=== PATIENT | female | born 1990 | race Caucasian/White ===

== ENCOUNTER 2018-03-09 12:42 | Emergency (ER) | payer OTHER ==
[~2018-03-09] VITALS: Ht 172.7 cm; Wt 80.0 kg
[~2018-03-09 12:42] MED LIST: ACYCLOVIR400 MG PO; CIPROFLOXACN500 MG PO; CLEOCIN150 MG OR; CLINDAMYCIN300 M1 PO; IRON28 MG OR; LORTAB5 OR; MACRODANTIN100 MG OR; MACRODANTIN100 MG PO; MEDDOSEPAK PO; NO; NO MEDS; OMEGA 31000 MG PO; PEPCID20 MG PO; PHENERGAN SUPP RE; PRENATA3 OR; PRENATA9 PO; PRENATAL1 TAB PO; TOBRAMYCIN0.3 % OS; TYLENOL500 MG OR; ULTRAM50 M1 PO
[2018-03-09] MEDS ORDERED: TORADOL PO (14:03)
[2018-03-09 14:10] VITALS: BP 122/67
== END 2018-03-09 14:10 | disposition home or self-care (01) | DRG 605 ==
LOC: ED 12:42
DX: S50.11XA Contusion of right forearm, initial encounter (principal); I10 Essential (primary) hypertension; J45.909 Unspecified asthma, uncomplicated; W01.190A Fall on same level from slipping, tripping and stumbling with subsequent striking against furniture, initial encounter; Y92.009 Unspecified place in unspecified non-institutional (private) residence as the place of occurrence of the external cause

== ENCOUNTER 2018-07-13 15:23 | Emergency (ER) | payer OTHER ==
[~2018-07-13] VITALS: Ht 172.7 cm; Wt 78.8 kg
[~2018-07-13 15:23] MED LIST changes: +TORADOL PO
[2018-07-13] MEDS ORDERED: TRAMADOL HYDROC50 MG PO (17:05)
[2018-07-13 17:40] VITALS: BP 138/78
== END 2018-07-13 17:40 | disposition home or self-care (01) ==
LOC: ED 15:23
DX: S92.354A Nondisplaced fracture of fifth metatarsal bone, right foot, initial encounter for closed fracture (principal); X50.1XXA Overexertion from prolonged static or awkward postures, initial encounter; Y92.009 Unspecified place in unspecified non-institutional (private) residence as the place of occurrence of the external cause

== ENCOUNTER 2019-01-22 07:28 | Emergency (ER) | payer OTHER ==
[~2019-01-22] VITALS: Ht 172.7 cm; Wt 79.5 kg
[~2019-01-22 07:28] MED LIST changes: +TRAMADOL HYDROC50 MG PO
[2019-01-22 08:34] VITALS: BP 130/81
== END 2019-01-22 08:41 | disposition home or self-care (01) ==
LOC: ED 07:28
DX: M79.671 Pain in right foot (principal); I10 Essential (primary) hypertension

== ENCOUNTER 2019-08-27 06:58 | Emergency (ER) | payer OTHER ==
[~2019-08-27] VITALS: Ht 172.7 cm; Wt 80.5 kg
[2019-08-27] MEDS ORDERED: SINGULAIR10 MG PO (08:21)
[2019-08-27] MEDS ORDERED: TAM75CAP PO (09:30)
[2019-08-27] MEDS ORDERED: ZOFRAN4 MG/TAB PO (09:30)
[2019-08-27 09:43] VITALS: BP 125/82
== END 2019-08-27 09:43 | disposition home or self-care (01) ==
LOC: ED 06:58
DX: J11.1 Influenza due to unidentified influenza virus with other respiratory manifestations (principal)

== ENCOUNTER 2020-03-21 08:35 | Emergency (ER) | payer OTHER ==
[~2020-03-21] VITALS: Ht 172.7 cm; Wt 85.0 kg
[~2020-03-21 08:35] MED LIST changes: +SINGULAIR10 MG PO; +TAM75CAP PO; +ZOFRAN4 MG/TAB PO
[2020-03-21] MEDS ORDERED: CEPHALEXIN500 MG PO (08:49)
[2020-03-21] MEDS ORDERED: BENADRY2 EX (08:49)
[2020-03-21] MEDS ORDERED: BENADRYL 50MG C50 MG PO (08:49)
[2020-03-21 08:53] VITALS: BP 128/77
== END 2020-03-21 08:58 | disposition home or self-care (01) ==
LOC: ED 08:35
DX: S20.369A Insect bite (nonvenomous) of unspecified front wall of thorax, initial encounter (principal); S20.469A Insect bite (nonvenomous) of unspecified back wall of thorax, initial encounter; I10 Essential (primary) hypertension; W57.XXXA Bitten or stung by nonvenomous insect and other nonvenomous arthropods, initial encounter; Y93.59 Activity, other involving other sports and athletics played individually

== ENCOUNTER 2023-02-17 14:27 | Emergency (ER) | payer MEDICAID ==
[~2023-02-17] VITALS: Ht 170.2 cm; Wt 88.0 kg
[~2023-02-17 14:27] MED LIST changes: +BENADRY2 EX; +BENADRYL 50MG C50 MG PO; +CEPHALEXIN500 MG PO
[2023-02-17] MEDS ORDERED: ALLERGY RE50 MCG/ACT (15:12)
[2023-02-17] MEDS ORDERED: VENTOLIN HFA108 MCG (15:12)
[2023-02-17 15:17] VITALS: BP 139/85
[2023-02-17 15:30] VITALS: BP 135/85
[2023-02-17 16:00] VITALS: BP 140/90
[2023-02-17 16:30] VITALS: BP 137/97
[2023-02-17 17:00] VITALS: BP 142/97
[2023-02-17 18:01] VITALS: BP 142/97
[2023-02-17] MEDS ORDERED: FLOXIN OTIC0.3 % OT (18:07)
== END 2023-02-17 18:22 | disposition home or self-care (01) ==
LOC: ED 14:27
DX: H72.91 Unspecified perforation of tympanic membrane, right ear (principal); I10 Essential (primary) hypertension; J45.909 Unspecified asthma, uncomplicated; Z20.822 Contact with and (suspected) exposure to COVID-19

== ENCOUNTER 2024-05-03 13:17 | Emergency (ER) | payer SELFPAY ==
[2024-05-03] VITALS (18 sets, daily range): BP systolic 107–147; BP diastolic 65–100
[~2024-05-03] VITALS: Ht 170.2 cm; Wt 88.4 kg
[~2024-05-03 13:17] MED LIST changes: +ALLERGY RE50 MCG/ACT; +FLOXIN OTIC0.3 % OT; +VENTOLIN HFA108 MCG
[2024-05-03] MEDS ORDERED: NITROGLYCERIN 0.4 MG/TAB SL ONE (13:40)
[2024-05-03] MEDS ORDERED: ASPIRIN 81 MG/TAB PO ONE (13:40)
[2024-05-03] MEDS ORDERED: MORPHINE SULFATE 4 MG/ML VIAL IV ONE (13:45)
[2024-05-03 13:53] LABS: BASO% 0.4 % (0-3); HEMATOCRIT 41.3 % (37.0-47.0); HEMOGLOBIN 13.1 g/dl (12.0-16.0); IMMATURE GRANULOCYTES 0.6 % (0.0-5.0); LYMPH% 23.3 % (15-41); MEAN CELL VOLUME 85.2 fL CALC (80.0-100.0); MEAN CORPUSCULAR HGB CONC 31.7 g/dL CAL (32.0-36.0); NEUT# 9.63 thou/uL (2.00-7.15); NEUT% 68.7 % (42-76); RED BLOOD COUNT 4.85 mill/uL (4.20-5.60)
[2024-05-03 14:16] LABS: ALBUMIN 4.7 g/dL (3.2-5.0); ALKALINE PHOSPHATASE 105 u/l (38-126); ANION GAP 10 (6-22 (CALC)); BILIRUBIN, TOTAL 0.4 mg/dL (0.02-1.3); BUN 11 mg/dL (7-17); BUN/CREATININE RATIO 14 (12-20 (CALC)); CARBON DIOXIDE 25 mmol/l (22-30); CHLORIDE 107 mmol/l (95-108); CREATININE 0.8 mg/dL (0.5-1.0); ESTIMATED GFR 98 ML/MIN (>=90 (CALC)); POTASSIUM 3.7 mmol/l (3.5-5.1); SGOT/AST 31 u/l (14-36); SODIUM 139 mmol/l (137-146); TOTAL PROTEIN 8.6 g/dL (6.3-8.2)
[2024-05-03] MEDS ORDERED: oxyCODONE 5MG/ ACETAMINOPHEN 325MG TAB PO ONE (15:10)
[2024-05-03] MEDS ORDERED: CLINDAMYCIN HY150 MG PO (16:29)
== END 2024-05-03 17:24 | disposition home or self-care (01) | DRG 153 ==
LOC: ED 13:17
PROVIDERS: Family Medicine
DX: J02.0 Streptococcal pharyngitis (principal); I10 Essential (primary) hypertension; J45.909 Unspecified asthma, uncomplicated; Z20.822 Contact with and (suspected) exposure to COVID-19
CPT/HCPCS: Q9967

== ENCOUNTER 2024-05-10 14:11 | Emergency (ER) | payer SELFPAY ==
[2024-05-10] VITALS (23 sets, daily range): BP systolic 77–147; BP diastolic 50–104
[~2024-05-10] VITALS: Ht 170.2 cm; Wt 83.9 kg
[~2024-05-10 14:11] MED LIST changes: +CLINDAMYCIN HY150 MG PO
[2024-05-10] MEDS ORDERED: ZITHROMAX250 MG PO (14:45)
== END 2024-05-10 15:14 | disposition home or self-care (01) | DRG 153 ==
LOC: ED 14:11
DX: J02.0 Streptococcal pharyngitis (principal); I10 Essential (primary) hypertension; J45.909 Unspecified asthma, uncomplicated

== ENCOUNTER 2024-11-28 08:22 | Emergency (ER) | payer SELFPAY ==
[2024-11-28] VITALS (8 sets, daily range): BP systolic 125–147; BP diastolic 80–94
[~2024-11-28] VITALS: Ht 170.2 cm; Wt 88.6 kg
[~2024-11-28 08:22] MED LIST changes: +ZITHROMAX250 MG PO
[2024-11-28] MEDS ORDERED: CLINDAMYCIN HC150 MG PO (08:44)
[2024-11-28] MEDS ORDERED: KETOROLAC TROMETHAMINE 30 MG/ML SDV IM ONE (08:45)
== END 2024-11-28 09:59 | disposition home or self-care (01) | DRG 159 ==
LOC: ED 08:22
DX: K04.7 Periapical abscess without sinus (principal); K02.9 Dental caries, unspecified; I10 Essential (primary) hypertension; J45.909 Unspecified asthma, uncomplicated